=== PATIENT | female | born 1945 | race Caucasian/White ===

== ENCOUNTER → 2017-03-22 | Outpatient (CLI) | payer MEDICARE, OTHER | END | disposition home or self-care (01) | LOC: GMAH 11:17 | PROVIDERS: ATTEND Family Medicine | DX: E78.2 Mixed hyperlipidemia (principal) ==

== ENCOUNTER → 2018-06-18 | Outpatient (CLI) | payer OTHER | LOC: GMAH 10:56 | PROVIDERS: ATTEND Family Medicine | DX: E78.2 Mixed hyperlipidemia (principal) ==

== ENCOUNTER → 2018-12-20 | Outpatient (CLI) | payer OTHER | LOC: US 13:08 | PROVIDERS: ATTEND Family Medicine | DX: E04.2 Nontoxic multinodular goiter (principal); E78.2 Mixed hyperlipidemia ==

== ENCOUNTER → 2019-06-27 | Outpatient (CLI) | payer OTHER | LOC: GMA MATASK 10:34 | PROVIDERS: ATTEND Family Medicine | DX: E78.2 Mixed hyperlipidemia (principal) ==

== ENCOUNTER → 2020-07-07 | Outpatient (CLI) | payer OTHER | LOC: GMA MATASK 10:46 | PROVIDERS: ATTEND Family Medicine | DX: E78.2 Mixed hyperlipidemia (principal) ==

== ENCOUNTER → 2020-09-01 | Outpatient (CLI) | payer OTHER | LOC: LAB.O 10:45 | PROVIDERS: ATTEND Specialist | DX: M06.9 Rheumatoid arthritis, unspecified (principal); Z79.899 Other long term (current) drug therapy ==